=== PATIENT | male | born 1965 ===

== ENCOUNTER 2022-12-16 11:03 | Outpatient (CLI) | payer BC, SELFPAY ==
--- NOTE | ~2022-12-16 | XR_ITS ---
EXAMINATION: XR mandible min 4V DATE: 12/16/2022 11:52 INDICATION: Left mandibular mass and pain. TECHNIQUE: 4 views of the mandible on 5 radiographs were obtained. COMPARISON: None. FINDINGS: The patient is edentulous. Bone alignment is normal. No fracture. There is a large erosion of left body of the mandible at the alveolar ridge. The temporomandibular joints are unremarkable. IMPRESSION: 1. Large erosion of left body of the mandible at the alveolar ridge, which may be secondary to malign everett or infection. Reviewed, dictated and finalized at location [facility]. [facility] IMPRESSION: 1. Large erosion of left body of the mandible at the alveolar ridge, which may be secondary to malignancy or infection.
[2022-12-16 11:43] LABS: Basophils Absolute Auto 0.04 K/mm3 (0.00-0.10); Basophils Percent Auto 0.3 % (0.0-1.0); Eosinophils Absolute Auto 0.13 K/mm3 (0.02-0.50); Eosinophils Percent Auto 0.9 % (1.0-6.0); Hematocrit 46.7 % (40.0-54.0); Hemoglobin 15.5 g/dL (14.0-18.0); Immature Granulocyte Absolute 0.05 K/mm3 (0.00-0.00); Immature Granulocyte Percent A 0.3 % (0.0-0.0); Lymphocytes Absolute Auto 1.61 K/mm3 (1.10-4.50); Lymphocytes Percent Auto 11.2 % (18.0-42.0); Mean Corpuscular HGB Conc 33.2 g/dL (32.0-36.0); Mean Corpuscular Hemoglobin 27.4 pg (27.0-31.0); Mean Corpuscular Volume 82.7 fL (78.0-102.0); Mean Platelet Volume 9.1 fl (8.7-11.0); Monocytes Absolute Auto 1.86 K/mm3 (0.10-0.90); Monocytes Percent Auto 12.9 % (2.0-11.0); Neutrophils Absolute Auto 10.7 K/mm3 (1.7-7.2); Neutrophils Percent Auto 74.4 % (50.0-70.0); Platelet Count Result 395 K/mm3 (150-420); Red Blood Count 5.65 M/mm3 (4.70-6.10); Red Cell Distribution Width 14.6 % (11.6-14.4); White Blood Count 14.4 K/mm3 (4.8-10.8)
[2022-12-16 12:24] LABS: Alanine Aminotransferase 29 U/L (16-63); Albumin Level 3.8 g/dL (3.4-5.0); Alkaline Phosphatase 58 U/L (46-116); Anion Gap 7 mmol/L (8-16); Aspartate Amino Transferase 17 U/L (15-37); Bilirubin,Total 0.5 mg/dL (0.00-1.00); Blood Urea Nitrogen 8 mg/dL (7-18); Calcium 9.5 mg/dL (8.5-10.1); Carbon Dioxide 29 mmol/L (21-32); Chloride 101 mmol/L (98-108); Estimated Glomerular Filt Rate > 60; Glucose 109 mg/dL (70-99); Osmolality Calculated 283 mOsm/kg (285-295); Potassium 5.1 mmol/L (3.5-5.1); Sodium 137 mmol/L (136-145); Total Protein 7.7 g/dL (6.4-8.2)
== END 2022-12-16 11:04 | disposition home or self-care (01) ==
LOC: CHSLAB 11:10
PROVIDERS: PCP Internal Medicine; Visit Provider Internal Medicine
DX: M27.40 Unspecified cyst of jaw (principal); C06.9 Malignant neoplasm of mouth, unspecified
CPT/HCPCS: 36415; 70110; 80053; 85025

== ENCOUNTER 2025-07-24 10:20 | Outpatient (CLI) | payer OTHER, SELFPAY ==
[2025-07-24 10:37] LABS: Hematocrit 44.0 % (40.0-54.0); Hemoglobin 15.0 g/dL (14.0-18.0); Mean Corpuscular HGB Conc 34.1 g/dL (32-36); Mean Corpuscular Hemoglobin 27.6 pg (27.0-31.0); Mean Corpuscular Volume 81.0 fL (78.0-102.0); Platelet Count Result 166 K/mm3 (150-420); Red Blood Count 5.43 M/mm3 (4.70-6.10); White Blood Count 4.0 K/mm3 (4.8-10.8)
--- OUTSIDE RECORDS SUMMARY | 2025-07-24 11:04 | XMS_ITS ---
Author Organization [facility] Address [address] [place] [address] Phone Care Team Providers Care Software Configuration Specialist Name Role Phone Unavailable Primary Care Provider Unavailabl e Active Problems Problem Noted Date Diagnosed Date Cancer of oral cavity 11/29/2022 Current Treatment and Therapy Plans No current plan information found. Past Treatment and Therapy Plans No past plan information found. Lifetime Dose Tracking * Chemical Lifetime Dose Automatic Entry Manual Entr y Effective Dose 8.1 mSv 8.1 mSv 0 mSv Total DLP 1,293 DLP 1,293 DLP 0 DLP CTDIvol Max 25.8 mGy 25.8 mGy 0 mGy CTDIvol Min 13.9 mGy 13.9 mGy 0 mGy
--- OUTSIDE RECORDS SUMMARY | 2025-07-24 11:04 | XMS_ITS | Clinical Summary ---
Author Organization [facility] Address [address] [facility] [place] [address] Phone Care Team Providers Care Gas Combustion Engineer Name Role Phone Unavailable Primary Care Provider Unavailabl e Allergies No known active allergies Medications oxyCODONE-aceta minophen (PERCOCET) 5-325 mg tabletIndicatio ns:Cancer of oral cavity (CMS/HCC) Take 1 Tablet by mouth every 4 hours as needed for Pain, Moderate. 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 Family History Medical History Relation Name Comments Cancer Father Relation Name Status Comments Father Social History Tobacco Use Types Packs/Day Years Used Date Smoking Tobacco: Every Day Cigarettes Smokeless Tobacco: Never Tobacco Cessation:Ready to Q uit: No; Counseling Given: Not Answered Alcohol Use Standard Drinks/Week Comments Yes 12 (1 standard drink = 0.6 oz pu re alcohol) Sex and Gender Information Value Date Recorded Sex Assigned at Not on file Legal Sex 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 STRAIGHTENER Gender Identity Not on file Sexual Orientation Not on file Last Filed Vital Signs Vital Sign Reading Time Taken Comments Blood Pressure - - Pulse - - Temperature - - Respiratory Rate 16 11/29/2022 4:00 PM BILLET STRAIGHTENER Oxygen Saturation - - Inhaled Oxygen Concentration - - Weight 47 kg (103 lb 9.9 oz) 11/29/2022 4:00 PM BILLET STRAIGHTENER Height 177 cm (5' 9.69) 11/29/2022 4:00 PM BILLET STRAIGHTENER Body Mass Index 15 11/29/2022 4:00 PM BILLET STRAIGHTENER Plan of Treatment Health Maintenance Due Date Last Done Comments DTAP/TDAP/TD VACCINES (1 - Tdap) 1984 COLORECTAL SCREENING 2010 Colorectal Cancer Screening 2010 FIT-DNA Q 3 years 2010 FIT/FOBT Q 1 year 2010 Flex Sig/CT Colonography Q 5 years 2010 ZOSTER VACCINE (1 of 2) 2015 INFLUENZA VACCINE (#1) 2025 RSV VACCINE (60+ or ) (1 - 1-dose 75+ series) 2040 HEPATITIS B VACCINES Aged Out No long er eligible based on patient's age to complete this topic Insurance [facility]
--- OUTSIDE RECORDS SUMMARY | 2025-07-24 11:04 | XMS_ITS ---
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 Left composite mandibulectomy, glossectomy. (Anterior and left mandible) 2. Bilateral neck dissection level 1A, 1B, 2A, 3 and 4. 3. Intraoperative external fixation. 4. Mandibular plating 2.0 [place] plate. 5. Open tracheostomy without Michell flap. 6. Right subscapular system osteocutaneous free flap 2 segment parascapular internal paddle latissimus skin external parascapular 6 x 10 cm, latissimus 7 x 10 cmMicrovascular anastomosis to the left facial artery and 4.0 technical support assistant to left external jugular vein. 7. Mandibular osteotomies. Stage ALVERTO (pT4a, pN0, cM0) PROCEDURE PERFORMED (01/03/23, [place]) 8. Left neck exploration. 9. Evacuation of hematoma. Procedure(s): (01/03/23, [place]) EXPLORATION NECK (Bilateral) Current Treatment and Therapy Plans No current plan information found. Past Treatment and Therapy Plans No past plan information found. Radiation Treatments * Course [id number]/22/2023 - 04/07/2023 Treatment Period Energy Fraction Dose Fractions Total Dose Plans Planned HEAD_NECK 02/22/2023 - 04/07/2023 200 30 / 6,000 Reference Points Delivered HEAD_NECK 02/22/2023 - 04/07/2023 6,000 Lifetime Dose Tracking * Chemical Lifetime Dose Automatic Entry Manual Entr y DLP 1,212 mGycm 1,212 mGycm 0 mGycm
--- OUTSIDE RECORDS SUMMARY | 2025-07-24 11:04 | XMS_ITS | Clinical Summary ---
Author Organization [address] Address [facility] [place] [address] Care Team Providers Care Plate Cutter Name Role Phone No, Physician Primary Care Provider [phone] Allergies No known active allergies Medications acetaminophen (TYLENOL) 500 mg tablet Take 1-2 tablets (500-1,000 mg total) by mouth every 6 (six) hours as needed for pain (1 tablet for mild to moderate pain. 2 tablets for severe pain) 30 tablet 3 Active chlorhexidine (PERIDEX) 0.12 % solution Apply 15 mL to the mouth or throat 3 (three) times a day 473 mL 3 Active lidocaine viscous (XYLOCAINE) 2 % solutionIndicat ions:Squamous cell carcinoma of oral cavity (HCC) Apply 2 mL topically every 3 (three) hours 60 mL 1 3 Active naloxone (NARCAN) 4 mg/actuation spray,non-aeros ol Administer 1 spray into affected nostril(s) as needed for opioid reversal or respiratory depression Call 911. Administer a single spray in one nostril. Repeat every 3 minutes as needed if no or minimal response. 1 each 1 3 Active al & mag hydroxide with simethicone-dip henhydramine-li docaine (MAGIC MOUTHWASH) suspension 0-1-3Yjluwetzlf s:Squamous cell carcinoma of oral cavity (HCC) Swish and swallow 15 mL every 4 (four) hours as needed (pain in mouth and with swallowing) 900 mL 3 3 Active fentaNYL (DURAGESIC) 25 mcg/hrIndicatio ns:Squamous cell carcinoma of oral cavity (HCC) Place 1 patch on the skin every third day 5 patch 3 Active HYDROcodone-sue taminophen (NORCO) 5-325 mg per tabletIndicatio ns:Pain Take 1-2 tablets by mouth every 4 (four) hours as needed for pain 180 tablet 3 Active Active Problems Problem Noted Date Diagnosed Date Moderate malnutrition 01/09/2023 Abscess 12/22/2022 Squamous cell carcinoma of oral cavity 3 Cancer Staging:Clinical stage from 12/08/2022:Stage ALVERTO(cT4a, cN0, [...] Intraoperative external fixation. 4. Mandibular plating 2.0 Chelsi plate. 5. Open tracheostomy without Michell flap. 6. Right subscapular system osteocutaneous free flap 2 segment parascapular internal paddle latissimus skin external parascapular 6 x 10 cm, latissimus 7 x 10 cmMicrovascular anastomosis to the left facial artery and 4.0 apartment manager to left external jugular vein. 7. Mandibular osteotomies. Stage ALVERTO (pT4a, pN0, cM0) PROCEDURE PERFORMED (01/03/23, [place]) 8. Left neck exploration. 9. Evacuation of hematoma. 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 Never 02/02/2023 Q2: How many drinks containi ng alcohol do you have on a typical day when you are drinking? Patient does not drink Q3: How often do you have si x or more drinks on one occasion? 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 SHIPPER Gender Identity Not on file Sexual Orientation Not on file Obstetrics History Last Filed Vital Signs Vital Sign Reading Time Taken Comments Blood Pressure 159/84 10/03/2023 1:52 PM PRODUCE SHIPPER Pulse 86 10/03/2023 1:52 PM PRODUCE SHIPPER Temperature 37.5 C (99.5 F) 10/03/2023 1:52 PM PRODUCE SHIPPER Respiratory Rate 18 10/03/2023 1:52 PM PRODUCE SHIPPER Oxygen Saturation 97% 10/03/2023 1:52 PM PRODUCE SHIPPER Inhaled Oxygen Concentration - - Weight 49.4 kg (108 lb 12.8 oz) 01/29/2025 3:34 PM CDT Height 167.3 cm (5' 5.87) 01/29/2025 3:34 PM CD T Body Mass Index 17.63 01/29/2025 3:34 PM CDT Plan of Treatment Health Maintenance Due Date Last Done Comments Colon Cancer Screening-Colonoscopy 1965 Depression Screening 1965 Hepatitis C Screening 1965 Prostate Cancer Screening-PSA 1965 DTaP/Tdap/Td Vaccine (1 - Tdap) 1976 Hepatitis B Screening 1983 Regular Well Visit/Exam 18-64 1983 Pneumococcal vaccine <65 (1 of 2 - PCV) 1984 Lung Cancer Screening 2015 Zoster Vaccine (1 of 2) 2015 Covid-19 Vaccine (3 - season) 2025, 06/15/2021 Influenza Vaccine (#1) 2025 09/05/2017 Medical Devices Implanted Type Area Librarian Helper Device Identifier Shelf Expiration Date Model / Serial / Lot Germmatterss PlayBucksannalee Eureka Microvascular Anastomoses 4mm Pilot Submersible Anastomosis Sterile [id number] - [id number] Implanted:Qty: 1 on 01/02/2023 by Feliciano Bradshaw MD at [facility] Left: Neck Fylet Leo [id number] 08/29/2027 [id number] / / [id number] Chelsi Craniomaxillofaci al Primary Left 2mm Glenn Plate Bone 2 [id number] - [id number] Implanted:Qty: 1 on 01/02/2023 by Feliciano Bradshaw MD at [facility] Left: Mandible Chelsi Craniomaxillofacial [id number] / / Chelsi Craniomaxillofaci al Leibinger [place] 2 2.3mm 8mm Lock Cross Pin Maxillofacial [id number] - [id number] Implanted:Qty: 3 on 01/02/2023 by Feliciano Bradshaw MD at [facility] Left: Mandible [place] Craniomaxillofacial [id number] / / Chelsi Craniomaxillofaci al Leibinger [place] 2 2.3mm 14mm Lock Cross Pin Maxillofacial [id number] - [id number] Implanted:Qty: 3 on 01/02/2023 by Feliciano Bradshaw MD at [facility] Left: Mandible Chelsi Craniomaxillofacial [id number] / / Chelsi Craniomaxillofaci al Leibinger [place] 2 2mm 6mm Lock Cross Pin Maxillofacial Screw 50 - [id number] Implanted:Qty: 3 on 01/02/2023 by Feliciano Bradshaw MD at [facility] Left: Mandible Chelsi Craniomaxillofacial [id number] / / Chelsi Craniomaxillofaci al Leibinger [place] 2 2mm 8mm Lock Cross Pin Mandibular Screw [id number] - [id number] Implanted:Qty: 2 on 01/02/2023 by Feliciano Bradshaw MD at [facility] Left: Mandible [place] Craniomaxillofacial [id number] / / [employer] Probe Doppler 17.4cm Standard Cuff Implantable 20mhz Latex Free Sterile Microvascular Anastomoses [place] [id number] - [id number] Implanted:Qty: 1 on 01/02/2023 by Feliciano Bradshaw MD at [facility] Left: Mandible [employer] [id number] 09/05/2025 [id number] / / [id number] Description:Doppler wire cut and secured with Tegaderm prior to discharge. To be removed at follow-up by the attending. [employer] Weck Horizon Ligate Triangulate Cross Section Wire Small Wide Latex Free [id number] - [id number] Implanted:Qty: 1 on 01/03/2023 by Feliciano Bradshaw MD at [facility] Left: Neck [employer] 01/03/2023 [id number] / / [employer] Weck Horizon 6 Cartridge Ligate Triangulate Cross Section Heart [id number] - [id number] Implanted:Qty: 1 on 01/03/2023 by Feliciano Bradshaw MD at [facility] Left: Neck [employer] 01/03/2023 [id number] / / [employer] Weck Horizon Ligate Triangulate Cross Section Wire Small Wide Latex Free [id number] - [id number] Implanted:Qty: 1 on 01/03/2023 by Feliciano Bradshaw MD at [facility] Left: Neck [employer] 01/03/2023 [id number] / / Explanted Type Area Librarian Helper Device Identifier Shelf Expiration Date Model / Serial / Lot [place] [employer] Dm Ii Compact 5mm 300mm Connecting Braided [place] External 5049-5-530 - [id number] Explanted:Qty: 2 on 01/02/2023 at [facility] Left: Mandible Chelsi [employer]edics 5049-5-53 0 / / Chelsi Leibinger Compact Dm Ii 5mm 3-4mm Pin To [place] Coupling External 4940-1-020 - [id number] Explanted:Qty: 4 on 01/02/2023 at [facility] Left: Mandible [place] Leibinger 4940-1-02 0 / / Chelsi Orthopaedics Dm Ii [place] 3mm 110mm 25mm Blunt Tip Pin Half Stainless 5036-2-110 - [id number] Explanted:Qty: 4 on 01/02/2023 at [facility] Left: Mandible [place] Orthopaedics 5036-2-11 0 / / Insurance [facility] [employer] [place] EXCHANGE Advance Directives For more information, please contact: [phone] * Full Code (Latest Code Status on File) Date Activated Date Inactivated Comments 01/02/2023 7:45 PM 01/11/2023 10:14 PM Care Teams Plate Cutter Relationship Specialty Start Date End Date No, Physician PCP - General 12/06/22
[2025-07-24 11:15] LABS: INR 0.9; Partial Thromboplastin Time 30.1 Sec (23.9-30.70); Prothrombin Time 10.2 Seconds (9.50-12.1)
[2025-07-24 12:28] LABS: Alanine Aminotransferase 66 U/L (6-50); Albumin Level 4.6 g/dL (3.5-5.1); Alkaline Phosphatase 67 U/L (38-126); Anion Gap 9 mmol/L (4-12); Aspartate Amino Transferase 106 U/L (17-59); Bilirubin,Total 0.9 mg/dL (0.2-1.3); Blood Urea Nitrogen < 2 mg/dL (9-20); CRP < 0.5 mg/dL (<1.0); Calcium 9.3 mg/dL (8.4-10.2); Carbon Dioxide 26 mmol/L (22-30); Chloride 108 mmol/L (98-107); Estimated Glomerular Filt Rate > 60; Glucose 90 mg/dL (65-110); Osmolality Calculated 292 mOsm/kg (285-295); Potassium 5.0 mmol/L (3.4-5.0); Sodium 143 mmol/L (137-145); Total Protein 7.8 g/dL (6.3-8.2)
== END 2025-07-24 10:21 | disposition home or self-care (01) ==
LOC: CHSLAB 10:27
PROVIDERS: PCP Internal Medicine; Visit Provider Internal Medicine
DX: T14.8XXA Other injury of unspecified body region, initial encounter (principal); F10.20 Alcohol dependence, uncomplicated; C76.0 Malignant neoplasm of head, face and neck
CPT/HCPCS: 36415; 80053; 85027; 85610; 85730; 86140